=== PATIENT | female | born 1970 | race Caucasian/White ===

== ENCOUNTER 2022-06-13 11:26 | Emergency (ER) | payer OTHER, SELFPAY ==
--- NOTE | ~2022-06-13 | XR_ITS ---
EXAMINATION: XR KNEE, RIGHT CLINICAL INFORMATION: Pain. COMPARISON: None TECHNIQUE: AP, lateral, tunnel, and sunrise views of the right knee. FINDINGS: Bony alignment and mineralization are normal. The lateral, medial and patellofemoral joint space compartment are well-maintained. There is tricompartment mild peripheral osteophyte formation. No fracture or dislocation is seen. There is a very small joint effusion. No foreign body is seen. XR/XR knee RT 4V IMPRESSION: 1. No fracture or dislocation is seen. 2. There is a very small right knee joint effusion. 3. There is mild tricompartment peripheral osteophyte formation of the right knee.
--- NOTE | ~2022-06-13 | US_ITS ---
EXAMINATION: US VENOUS ULTRASOUND WITH DOPPLER LOWER EXTREMITY, RIGHT CLINICAL INFORMATION: Right knee swelling COMPARISON: None TECHNIQUE: Ultrasound of the deep veins is performed from the hip to the calf with compression sonography and color and pulse Doppler assessment. Spectral analysis with color-flow imaging is performed. FINDINGS: There is normal venous compression and respiratory variation and augmented flow. The visualized common femoral vein, superficial femoral vein, profunda femoral vein, popliteal vein, and the trifurcation region shows no evidence of deep venous thrombosis. There is no significant popliteal fossa cyst. The contralateral left common femoral vein appears normal. If the patient's symptoms persist, followup ultrasound in 5 days 7 days might be of value to exclude proximal propagation from a non-visualized calf vein. US/US venous duplex LE RT IMPRESSION: No DVT demonstrated in the right lower extremity.
[2022-06-13 11:33] VITALS: BP 170/103; PULSE 94; RESP 16; TEMP 36.3; O2SAT 99; BMI 35.4
--- NOTE | 2022-06-13 11:33 | ED.EXTPRO ---
HPI - Extremity Problem General Chief complaint: Extremity Problem <HAYDEE Higgins - Last Filed: 06/13/22 11:38> Stated complaint: R knee pain <HAYDEE Higgins - Last Filed: 06/13/22 11:38> Time Seen by Provider: 06/13/22 11:50 <HAYDEE Higgins - Last Filed: 06/13/22 11:38> Source: patient <HAYDEE Shelton Last Filed: 06/13/22 15:45> Mode of arrival: ambulatory <HAYDEE Shelton - Last Filed: 06/13/22 15:45> Limitations: no limitations <HAYDEE Shelton Last Filed: 06/13/22 15:45> History of Present Illness HPI Narrative: Patient is a 52 year old assigned female at with no reported medical history presenting to the emergency department today with right knee pain. Patient states that her right knee has been bothering her for the last 3 weeks. Patient states that she is having a popping sensation in the knee and at times it feels as though it's giving out or going backwards. Patient denies any dizziness, lightheadedness, abdominal pain, nausea, vomiting, fever, chills, blurry vision, double vision, loss of vision, chest pain, difficulty breathing, shortness of breath, back pain, night sweats, pain with urination, increased urinary frequency, increased urinary urgency, blood in her urine or stool, syncope or a near syncopal episode, recent trauma or falls, bowel incontinence, bladder incontinence, bowel retention, bladder retention, or any other complaints at this time. <HAYDEE Shelton - Last Filed: 06/13/22 15:45> MD Complaint: extremity pain <HAYDEE Shelton Last Filed: 06/13/22 15:45> Onset (ago): week(s) (2) <HAYDEE Shelton - Last Filed: 06/13/22 15:45> Pain Consistency: intermittent <HAYDEE Shelton - Last Filed: 06/13/22 15:45> Location: right and knee <HAYDEE Shelton Last Filed: 06/13/22 15:45> Severity scale (1-10): 3 <HAYDEE Shelton - Last Filed: 06/13/22 15:45> Radiation: none <HAYDEE Shelton - Last Filed: 06/13/22 15:45> Relieving factors: nothing <HAYDEE Shelton - Last Filed: 06/13/22 15:45> Exacerbating factors: exertion <HAYDEE Shelton Last Filed: 06/13/22 15:45> Associated symptoms: denies other symptoms <HAYDEE Shelton - Last Filed: 06/13/22 15:45> Related Data Allergies/Adverse reactions: Allergies Allergy/AdvReac Type Severity Reaction Status Date / Time aspirin [ASA] Allergy Unknown UNKNOWN Verified 06/13/22 11:34 oxycodone [OXYCODONE] Allergy Unknown UNKNOWN Verified 06/13/22 11:34 Penicillins [PENICILLINS] Allergy Unknown UNKNOWN Verified 06/13/22 11:34 <Tianna Ramos [place] - Last Filed: 06/13/22 11:38> Review of Systems Constitutional: Constitutional: Reports no additional constitutional complaints, Denies chills, Denies fever(s) and Denies night sweats <HAYDEE Shelton - Last Filed: 06/13/22 15:45> Eyes: Eyes: Reports no additional eye complaints, Denies blurry vision, Denies change in vision, Denies diplopia, Denies eye discharge, Denies loss of vision and Denies eye pain <HAYDEE Shelton - Last Filed: 06/13/22 15:45> ENT: Denies dizziness <HAYDEE Shelton Last Filed: 06/13/22 15:45> Cardiovascular: Cardiovascular: Reports no additional cardiovascular complaints, Denies chest pain, Denies lightheadedness, Denies Loss of Consciousness and Denies dyspnea <HAYDEE Shelton - Last Filed: 06/13/22 15:45> Respiratory: Respiratory: Reports no additional respiratory complaints and Denies dyspnea <HAYDEE Shelton - Last Filed: 06/13/22 15:45> Gastrointestinal: Gastrointestinal: Reports no additional gastrointestinal complaints, Denies abdominal pain, Denies melena, Denies hematochezia, Denies change in bowel habits and Denies change in stool character <HAYDEE Shelton - Last Filed: 06/13/22 15:45> Genitourinary: Genitourinary: Denies hematuria, Denies urinary frequency, Denies dysuria, Denies urinary incontinence, Denies urinary hesitancy and Denies urinary urgency <HAYDEE Shelton - Last Filed: 06/13/22 15:45> Musculoskeletal: Musculoskeletal: Reports no additional musculoskeletal complaints, Denies numbness and Denies tingling <HAYDEE Shelton - Last Filed: 06/13/22 15:45> Comments: right knee pain <HAYDEE Shelton - Last Filed: 06/13/22 15:45> Neurologic: Denies dizziness, Denies loss of vision, Denies numbness and Denies tingling <HAYDEE Shelton - Last Filed: 06/13/22 15:45> Psychiatric: Psychiatric: Reports no additional psychiatric complaints <HAYDEE Shelton - Last Filed: 06/13/22 15:45> Endocrine: Endocrine: Reports no additional endocrine complaints <HAYDEE Shelton - Last Filed: 06/13/22 15:45> Hematologic/Lymphatic: Hematologic/Lymphatic: Reports no additional hematologic/lymphatic complaints <HAYDEE Shelton - Last Filed: 06/13/22 15:45> Allergic/Immunologic: Allergic/Immunologic: Reports no additional allergic/immunologic complaints <HAYDEE Shelton - Last Filed: 06/13/22 15:45> [facility] Past Medical History Attestation statement: The following information was validated with the patient. <HAYDEE Shelton - Last Filed: 06/13/22 15:45> Source: old records reviewed and nursing notes reviewed <HAYDEE Shelton - Last Filed: 06/13/22 15:45> Social History Social History: Social History Advance Directives: No Advance Directives Information Provided: Yes <HAYDEE Higgins - Last Filed: 06/13/22 11:38> Physical Exam Vital Signs: Vital Signs: Last Vital Signs Temp 97.3 F 06/13/22 11:33 Pulse 94 06/13/22 11:33 Resp 16 06/13/22 11:33 BP 170/103 H 06/13/22 11:33 Pulse Ox 99 06/13/22 11:33 O2 Del Method 06/13/22 11:33 BMI result Body Mass Index 35.4 <HAYDEE Higgins - Last Filed: 06/13/22 11:38> Vital Signs: Last Vital Signs Temp 97.3 F 06/13/22 11:33 Pulse 94 06/13/22 11:33 Resp 16 06/13/22 11:33 BP 170/103 H 06/13/22 11:33 Pulse Ox 99 06/13/22 11:33 O2 Del Method 06/13/22 11:33 BMI result Body Mass Index 35.4 <HAYDEE Shelton - Last Filed: 06/13/22 15:45> Const: General: cooperative, no acute distress, alert and awake <HAYDEE Shelton - Last Filed: 06/13/22 15:45> Nutritional Appearance: well nourished <HAYDEE Shelton - Last Filed: 06/13/22 15:45> Orientation/consciousness: patient oriented x3 <HAYDEE Shelton - Last Filed: 06/13/22 15:45> Limitations: no limitations <HAYDEE Shelton - Last Filed: 06/13/22 15:45> HEENT: Head: Yes normal to inspection and Yes atraumatic <HAYDEE Shelton - Last Filed: 06/13/22 15:45> Ears: hearing grossly normal bilaterally and external ears normal <HAYDEE Shelton - Last Filed: 06/13/22 15:45> General nose exam: Normal external nose present, no nasal discharge noted and no epistaxis <HAYDEE Shelton - Last Filed: 06/13/22 15:45> Face and sinus: Yes normal facial exam, No abrasion and No laceration <HAYDEE Shelton - Last Filed: 06/13/22 15:45> Mouth: Normal oral and palatal mucosa present, no drooling and no muffled voice <HAYDEE Shelton - Last Filed: 06/13/22 15:45> Eyes: General: appearance normal, both eyes and all related structures <HAYDEE Shelton - Last Filed: 06/13/22 15:45> Periorbital: periorbital findings normal <HAYDEE Shelton - Last Filed: 06/13/22 15:45> Eyelids: Yes eyelids normal <Imani Welch PA - Last Filed: 06/13/22 15:45> Conjunctivae: conjunctivae normal <Imani Welch PA - Last Filed: 06/13/22 15:45> Pupils: Equal, round and reactive pupils present <Imani Welch PA - Last Filed: 06/13/22 15:45> EOM: EOMs intact bilaterally <Imani Welch PA - Last Filed: 06/13/22 15:45> Neck: Neck: Yes normal visual inspection, Yes full ROM and Yes no lymphadenopathy <Imani Welch PA - Last Filed: 06/13/22 15:45> Chest: Chest palpation & inspection: normal inspection of the chest <Imani Welch PA - Last Filed: 06/13/22 15:45> Resp: Effort & Inspection: normal respiratory effort and able to speak in complete sentences <Imani Welch [place] - Last Filed: 06/13/22 15:45> Auscultation: clear to auscultation bilaterally <Imani Welch PA - Last Filed: 06/13/22 15:45> Cardio: Rate: regular rate <Imani Welch PA - Last Filed: 06/13/22 15:45> Rhythm: regular rhythm <Imani Welch PA - Last Filed: 06/13/22 15:45> GI: Inspection: Yes normal to inspection <Imani Welch DE - Last Filed: 06/13/22 15:45> Palpation (GI): Soft to palpation, not firm, nontender and no guarding <Imani Welch PA - Last Filed: 06/13/22 15:45> Neuro: General: patient oriented x3 and moves all extremities <Imani Welch PA - Last Filed: 06/13/22 15:45> Cranial nerves: Yes Equal, round and reactive pupils present <Imani Welch PA - Last Filed: 06/13/22 15:45> Cognition (Neuro): normal cognition <Imani Welch DE - Last Filed: 06/13/22 15:45> Motor exam (neuro): 5/5 motor strength present throughout <HAYDEE Shelton - Last Filed: 06/13/22 15:45> Sensory Exam: Normal double simultaneous stimulation for sensation <HAYDEE Shelton - Last Filed: 06/13/22 15:45> Coordination: [id number] test normal <HAYDEE Shelton - Last Filed: 06/13/22 15:45> Extrem: General: Yes normal to inspection, Yes full ROM and Yes capillary refill normal <HAYDEE Shelton - Last Filed: 06/13/22 15:45> Psych: Appearance: grossly normal <HAYDEE Shelton - Last Filed: 06/13/22 15:45> Mental Status: mental status grossly normal <HAYDEE Shelton - Last Filed: 06/13/22 15:45> Affect: normal affect <HAYDEE Shelton - Last Filed: 06/13/22 15:45> Attitude: cooperative <HAYDEE Shelton - Last Filed: 06/13/22 15:45> Thought process: Normal thought process present <HAYDEE Shelton - Last Filed: 06/13/22 15:45> Thought content: Normal thought content present <HAYDEE Shelton - Last Filed: 06/13/22 15:45> Insight: Good insight present (Psych) <HAYDEE Shelton - Last Filed: 06/13/22 15:45> Course Course Course Narrative: RME - 52 yo female presenting with 3 weeks of nontraumatic right knee pain, intermittent swelling, difficulty ambulating. Pain located behind the knee and in front of the knee. XR knee and LE U/S ordered to assess for john's cyst and r/o blood clot. <HAYDEE Higgins - Last Filed: 06/13/22 11:38> Medications Administered Discontinued Medications Generic Name Dose Route Start Last Admin Trade Name Freq PRN Reason Stop Dose Admin Hydrocodone Bitart/Acetaminophen 1 tab 06/13/22 13:51 06/13/22 14:17 Hydrocodone Bit/Acetam 5/325 Tablet PO 06/13/22 13:52 1 tab ONCE ONE Administration <HAYDEE Higgins Last Filed: 06/13/22 11:38> Medications Administered Discontinued Medications Generic Name Dose Route Start Last Admin Trade Name Freq PRN Reason Stop Dose Admin Hydrocodone Bitart/Acetaminophen 1 tab 06/13/22 13:51 06/13/22 14:17 Hydrocodone Bit/Acetam 5/325 Tablet PO 06/13/22 13:52 1 tab ONCE ONE Administration <HAYDEE Shelton Last Filed: 06/13/22 15:45> Medical Decision Making Medical Decision Making MDM Narrative: Patient is a 52 year old assigned female at with no reported medical history presenting to the emergency department today with right knee pain. Patient's physical exam was unremarkable. Patient's right knee x-ray and right lower leg US showed no acute process. I explained my physical exam findings as well as all test results to the patient. I answered all questions asked by the patient. Patient's clinical presentation is most consistent with an internal knee injury. Patient's right knee was placed in an immobilizer and the patient was given crutches with crutch instructions. I stressed the importance of the patient taking her medication as prescribed. I stressed the importance of the patient following up with her primary care provider and an orthopedic provider. I stressed the importance of the patient returning to the emergency department immediately if her symptoms were to worsen or if she were to develop any dizziness, shortness of breath, difficulty breathing, chest pain, blurry vision, loss of vision, nausea, vomiting, abdominal pain, fever, chills, back pain, or any other complaints. Patient verbalized agreement and understanding with this treatment plan and discharge. <HAYDEE Shelton Last Filed: 06/13/22 15:45> Differential Diagnosis Differential Diagnoses: The differential diagnosis associated with the presentation includes <HAYDEE Shelton Last Filed: 06/13/22 15:45> right knee injury, right knee pain <HAYDEE Shelton Last Filed: 06/13/22 15:45> Radiology Impression Radiologist Impression: My interpretation is in agreement with the radiologist's impression of these imaging studies. EXAMINATION: XR KNEE, RIGHT? CLINICAL INFORMATION: Pain.? COMPARISON: None? TECHNIQUE: AP, lateral, tunnel, and sunrise views of the right knee. FINDINGS: Bony alignment and mineralization are normal. The lateral, medial and patellofemoral joint space compartment are well-maintained. There is tricompartment mild peripheral osteophyte formation. No fracture or dislocation is seen. There is a very small joint effusion. No foreign body is seen.? XR/XR knee RT 4V IMPRESSION: ? 1. No fracture or dislocation is seen. ? 2. There is a very small right knee joint effusion. ? 3. There is mild tricompartment peripheral osteophyte formation of the right knee. Dictated By: Luis Enrique Lu MD Signed By: Electronically signed by Luis Enrique Lu MD 06/13/22 1346 EXAMINATION:? US VENOUS ULTRASOUND WITH DOPPLER LOWER EXTREMITY, RIGHT CLINICAL INFORMATION:? Right knee swelling COMPARISON:? None TECHNIQUE: Ultrasound of the deep veins is performed from the hip to the calf with compression sonography and color and pulse Doppler assessment. Spectral analysis with color-flow imaging is performed. FINDINGS: There is normal venous compression and respiratory variation and augmented flow. The visualized common femoral vein, superficial femoral vein, profunda femoral vein, popliteal vein, and the trifurcation region shows no evidence of deep venous thrombosis. ? There is no significant popliteal fossa cyst. The contralateral left common femoral vein appears normal. If the patient's symptoms persist, followup ultrasound in 5 days 7 days might be of value to exclude proximal propagation from a non-visualized calf vein. US/US venous duplex LE RT IMPRESSION: No DVT demonstrated in the right lower extremity. Dictated By: Seven Milton MD Signed By: Electronically signed by Seven Milton MD 06/13/22 1343 <HAYDEE Shelton - Last Filed: 06/13/22 15:45> Discharge Plan Discharge Clinical Impression: Acute knee pain <HAYDEE Higgins - Last Filed: 06/13/22 11:38> Patient Disposition: Home, Self-Care <HAYDEE Higgins - Last Filed: 06/13/22 11:38> Instructions: Crutch Instructions (ED), Knee Pain (ED) <HAYDEE Higgins - Last Filed: 06/13/22 11:38> Additional Instructions: Follow up with your primary care provider and an orthopedic provider. Return to the emergency department immediately if your symptoms worsen or if you develop any dizziness, shortness of breath, difficulty breathing, chest pain, blurry vision, loss of vision, nausea, vomiting, abdominal pain, fever, chills, back pain, or any other complaints. <HAYDEE Higgins - Last Filed: 06/13/22 11:38> Referrals: [facility] [place] [facility] [[place] Group] (Call to establish and follow up with a primary care provider. ) [facility] [place] [facility] [Provider Group] (Call to establish and follow up with a primary care provider. ) [facility] [place] [facility],Samir [Provider Group] (Call to establish and follow up with a primary care provider. ) [facility] [Provider Group] (Call to establish and follow up with an orthopedic provider. ) <HAYDEE Higgins - Last Filed: 06/13/22 11:38> Interventions: ED Discharge Assessment Last Done: 06/13/22 14:31 <HAYDEE Higgins - Last Filed: 06/13/22 11:38> Discharge Date/Time: 06/13/22 14:31 <HAYDEE Higgins - Last Filed: 06/13/22 11:38> Print Language: Greek <HAYDEE Higgins - Last Filed: 06/13/22 11:38>
[2022-06-13] MEDS: HYDROcodone Bit/Acetam 5/325 TABLET 1 TAB PO (14:17)
== END 2022-06-13 14:31 | disposition home or self-care (01) ==
PROVIDERS: Emergency Provider Emergency Medicine
DX: M25.561 Pain in right knee (principal); M79.661 Pain in right lower leg
CPT/HCPCS: 73564; 93971; 99283; 99284

== ENCOUNTER 2022-07-12 09:43 | Outpatient (REF) | payer OTHER, SELFPAY ==
--- NOTE | ~2022-07-12 | XR_ITS ---
EXAMINATION: XR KNEE AP STANDING XR KNEE, RIGHT CLINICAL INFORMATION: Pain. COMPARISON: Radiographs dated 06/13/2022. TECHNIQUE: AP bilateral standing view of the knees was obtained. Axial view of the right knee is obtained. FINDINGS: Bony alignment and mineralization are normal. The bilateral lateral and medial joint space compartments are well-maintained. The right patellofemoral compartment is well-maintained. There is minimal tricompartment osteoarthritic change of the right knee. No unusual degenerative change is seen of the left knee. No fracture or dislocation is seen. There is no varus or valgus configuration noted bilaterally. XR/XR knee RT 1V IMPRESSION: 1. There is minimal tricompartment osteoarthritic change of the right knee. 2. The lateral and medial joint space compartments of the left knee are well-maintained.
--- NOTE | ~2022-07-12 | XR_ITS ---
EXAMINATION: XR KNEE AP STANDING XR KNEE, RIGHT CLINICAL INFORMATION: Pain. COMPARISON: Radiographs dated 06/13/2022. TECHNIQUE: AP bilateral standing view of the knees was obtained. Axial view of the right knee is obtained. FINDINGS: Bony alignment and mineralization are normal. The bilateral lateral and medial joint space compartments are well-maintained. The right patellofemoral compartment is well-maintained. There is minimal tricompartment osteoarthritic change of the right knee. No unusual degenerative change is seen of the left knee. No fracture or dislocation is seen. There is no varus or valgus configuration noted bilaterally. XR/XR knee standing BI IMPRESSION: 1. There is minimal tricompartment osteoarthritic change of the right knee. 2. The lateral and medial joint space compartments of the left knee are well-maintained.
== END 2022-07-12 09:44 | disposition home or self-care (01) ==
LOC: HO.HOSX 09:43
PROVIDERS: Visit Provider Physician Assistant
DX: S80.01XA Contusion of right knee, initial encounter (principal)
CPT/HCPCS: 73560; 73565; 99202